=== PATIENT | male | born 1980 ===

== ENCOUNTER 2020-01-11 01:41 | Outpatient (CLI) | payer OTHER, SELFPAY ==
[2020-01-11 13:57] VITALS: BP 130/79; PULSE 90; RESP 16; TEMP 37.5; O2SAT 97
[2020-01-11 14:36] VITALS: PULSE 80; RESP 16; O2SAT 95
--- NOTE | 2020-01-11 14:40 | DI.US_ITS ---
EXAM: US PAIN CLINIC NEEDLE GUIDANCE CLINICAL HISTORY: PIRIFORMIS SYNDROME, ULTRASOUND-GUIDED PIRIFORMIS MUSCLE INJECTION. TECHNIQUE: Ultrasound was performed according to protocol. COMPARISON: No exams were available for comparison FINDINGS: Sonography was utilized by Dr. Israel during the performance of an ultrasound-guided piriformis muscle injection. Please refer to the procedure report for complete details. DATA REPOSITORY:
[2020-01-11] MEDS: Lidocaine 2% Pres-Free 5 ML VIAL IJ (14:44)
[2020-01-11] MEDS: methylPREDNISolone ACETATE 40 MG/ML VIAL IJ (14:44)
== END 2020-01-11 02:01 ==
PROVIDERS: PCP Family Medicine; Visit Provider Preventive Medicine Occupational Medicine
DX: M79.18 Myalgia, other site (principal)
CPT/HCPCS: 20552; 76942; J1030